=== PATIENT | male | born 1950 | race African-American/Black ===

== ENCOUNTER 2022-11-10 11:58 | Emergency (ER) | payer OTHER ==
[~2022-11-10] VITALS: Ht 170.2 cm; Wt 122.5 kg
[2022-11-10 12:03] VITALS: BP 156/83
--- NOTE | 2022-11-10 12:09 | NUR ---
pt ambulatory to bed 01
[2022-11-10] MEDS ORDERED: NAPR-1704 PO ×2 (13:17→14:12)
[2022-11-10 14:00] VITALS: BP 137/81
== END 2022-11-10 14:00 | disposition home or self-care (01) ==
LOC: MED 11:58
DX: M54.12 Radiculopathy, cervical region (principal); J44.9 Chronic obstructive pulmonary disease, unspecified; E11.9 Type 2 diabetes mellitus without complications; I10 Essential (primary) hypertension; E78.5 Hyperlipidemia, unspecified; Z79.899 Other long term (current) drug therapy; Z98.890 Other specified postprocedural states
CPT/HCPCS: 99282